=== PATIENT | female | born 1975 | race Caucasian/White ===

== ENCOUNTER 2018-04-11 22:46 | Emergency (ER) | payer BC ==
[~2018-04-11] VITALS: Ht 182.9 cm; Wt 101.5 kg
[~2018-04-11 22:46] MED LIST: FLOMAX0.4 MG PO; PERCOCET 5/31 TABLET PO; ZYRTEC10 M2 PO
[2018-04-12 01:17] VITALS: BP 129/70
== END 2018-04-12 01:18 | disposition home or self-care (01) ==
LOC: EME 22:46
PROC: 3E0234Z Introduction of Serum, Toxoid and Vaccine into Muscle, Percutaneous Approach (ICD-10-PCS; principal; 2018-04-11)
DX: Z20.3 Contact with and (suspected) exposure to rabies (principal); Z23 Encounter for immunization; Z29.14 Encounter for prophylactic rabies immune globulin
CPT/HCPCS: 99281; 99284

== ENCOUNTER 2018-04-25 11:48 | Emergency (ER) | payer BC ==
[~2018-04-25] VITALS: Ht 180.3 cm; Wt 100.1 kg
[2018-04-25 14:42] VITALS: BP 150/83
== END 2018-04-25 14:47 | disposition home or self-care (01) ==
LOC: EME 11:48
PROC: 3E0234Z Introduction of Serum, Toxoid and Vaccine into Muscle, Percutaneous Approach (ICD-10-PCS; principal; 2018-04-25)
DX: Z20.3 Contact with and (suspected) exposure to rabies (principal); Z23 Encounter for immunization; R49.0 Dysphonia
CPT/HCPCS: 99281; 99282; J7512